=== PATIENT | female | born 1930 | race Caucasian/White ===

== ENCOUNTER 2016-10-26 19:58 | Inpatient (IN) | payer MEDICARE, OTHER ==
[~2016-10-26] VITALS: Ht 152.4 cm; Wt 72.2 kg
--- NOTE | 2016-10-26 19:56 | ED.REPORT ---
HPI-Stroke / CVA Oct 26, 2016 ED Provider: James Lizama MD Pt is an 86 year old female with a history of HTN, hyperlipidemia, TX, CHF, A- fib, and TIA who presents to the ED via EMS complaining of difficulty speaking onset prior to arrival. Per EMS, the pt was last known normal at 17:30 and she is asymptomatic aside from her slurred speech. EMS reports that the pt had no focal deficits and her vitals were normal en route. Pt currently lives alone , and she reportedly knew that she was having stroke symptoms. The pt had last spoke with the neighbor 2 hours ago at 17:30, and she last saw her daughter last night. When her daughter spoke to her on the phone, the pt was unable to speak. Per daughter, the pt takes aspirin, but she does not take Plavix currently. On pt's arrival, her blood pressure was 205/105. Daughter reports that the pt's last stroke was "years ago". She denies seizures , recent head trauma, recent lumbar puncture, GI bleeding, recent TX, and recent surgery. Pt reports vision change at onset of her symptoms. Nursing Notes Stated Complaint: STROKE LIKE SYMPTOMS Chief Complaint: Stroke Symptoms Nursing Notes Reviewed: Yes Allergies: Coded Allergies: No Known Allergies (Unverified , 10/26/16) Scheduled ([cholecalciferol]) 1 TABLET PO DAILY (Reported) Aspirin (Aspirin) 81 Mg Tablet 81 MG PO DAILY (Reported) Atorvastatin Calcium (Atorvastatin Calcium) 40 Mg Tablet 40 MG PO HS (Reported) Clopidogrel (Clopidogrel) 75 Mg Tablet 75 MG PO DAILY Furosemide (Furosemide) 20 Mg Tab 20 MG PO DAILY (Reported) Lactobacillus Combo No.11 (Probiotic) 1 Each Cap.sprink 1 EACH PO DAILY ( Reported) Losartan Potassium (Losartan Potassium) 100 Mg Tablet 100 MG PO DAILY (Reported ) Magnesium Oxide (Magnesium) 400 Mg Capsule 400 MG PO DAILY (Reported) Melatonin (Melatonin) 3 Mg Tab.rapdis 3 MG PO HS (Reported) Metoprolol Tartrate (Metoprolol Tartrate) 50 Mg Tablet 50 MG PO DAILY (Reported ) Multivit-Min/Iron Fum/Folic AC (Avtzb-Oglkopb-Gvlaenqf Tablet) 7.5 Mg Iron-400 Mcg Tablet 1 EACH PO DAILY (Reported) Omeprazole (Omeprazole) 20 Mg Capsule.dr 20 MG PO DAILY (Reported) Pnv Cmb#21/Iron/Folic Acid ( Complete Caplet) 1 Each Tablet 1 EACH PO DAILY (Reported) Potassium Chloride ER (Potassium Chloride ER) 10 Meq Tablet 10 MEQ PO DAILY ( Reported) TAKE WITH FOOD Scheduled PRN Acetaminophen/Codeine 300-30mg (Acetaminophen/Codeine 300-30mg) 1 Each Tablet 1 TABLET PO Q4H PRN PRN Pain (Reported) Gabapentin (Gabapentin) 300 Mg Capsule 300 MG PO DAILY PRN PRN Neuropathy ( Reported) Miscellaneous Medications Acetaminophen/Diphenhydramine (Tylenol Pm Ex-Strength Caplet) 500 Mg-25 Mg Tablet 1 EACH PO (Reported) General Time Seen by Provider: 20:05 Chief Complaint Unable to speak Hx Obtained From: Patient, Daughter, EMS Arrived By: Ambulance Time last known well 17:30 Sudden in Onset?: Yes Symptom Duration: Since onset Progression Since Onset: Gradually improving Severity: Current: No pain currently Severity: Maximum: No pain Recent Healthcare: No recent doctor visit, No recent hospitalization Similar Sx Previous: Yes Risk Factors NIH Stroke Scale Level of Consciousness: Alert and responsive (0) Ask Month & Age: Dysarthric/intubated (1) Open/Close Eyes/Hand Unmanned Equipment Operator: Performs both tasks (0) Horizontal EO Movements: None (0) Visual Dubois: No visual loss (0) Facial Palsy: Normal symmetry (0) Right Arm Motor Drift (10s): No drift 10 sec (0) Left Arm Motor Drift (10s): No drift 10 sec (0) Right Leg Motor Drift (5s): No drift 5 sec (0) Left Leg Motor Drift (5s): No drift 5 sec (0) Limb Ataxia FNF/Heel-Herrera: No ataxia (0) Sensation (Arms/Legs/Face): No sensory loss (0) Language Aphasia: Severe, fragmented (2) Dysarthria: Severe slur unintel (2) Extinction/Inattention: No exctinct/inattent (0) NIHSS Score: 5 Time NIHSS Performed: 20:11 Date NIHSS Performed: Oct 26, 2016 Past Medical History Past Medical History Reports: Congestive heart failure, Hyperlipidemia, Hypertension, Transient ischemic attack (right sided), Denies: Diabetes mellitus Reports: Atrial fibrillation Past Surgical History Reports: Carotid endarterectomy, Cataract surgery, Hysterectomy Smoking History Unknown if Ever Smoker Social History Alcohol Use: Denies alcohol use Drug Use: Denies drug use Other Social History: Good social support, Lives alone Ambulatory Status Independent Review of Systems Denies GI bleeding Denies head injury Neurologic: Reports: Slurred speech, Unable to speak, Vision change, Denies: Seizure Complete sys rev & neg: except as marked. Physical Exam Initial Vital Signs Vital Signs (First) Date Time Temp Pulse Resp B/P Pulse Ox O2 Delivery O2 Flow Rate FiO2 10/26/16 20:23 36.2 82 20 205/75 92 Room Air Initial VS: Reviewed Abdomen / GI: Soft, Non-tender Extremities: Vascular intact, Neuro intact Skin: Warm, Dry, No cyanosis General/Constitutional: Awake, Alert Head / Eyes: Atraumatic, Normocephalic Neck: Atraumatic, Supple, Full range of motion Respiratory / Chest: Atraumatic, Breath sounds NL, Breath sounds = bilat Cardiovascular: Heart rate NL, Heart sounds NL Heart Rate / Rhythm: Positive: Irreg irregular rhythm No lower extremity edema Neurologic: No motor deficits, No sensory deficits See NIH scale for details Interpretation & Diagnostics Lab Results Interpretation Result Diagram: 10/27/16 0550 10/27/16 0550 Test 10/26/16 20:19 10/26/16 20:21 10/26/16 21:25 Prothrombin Time 10.6sec (8.1-12.5) Prothromb Time International Ratio 0.99ratio Activated Partial Thromboplast Time 28.2sec (22.8-33.0) Hemoglobin A1c 5.8% (4.8-5.6) Troponin T < 0.010ug/L (0.0-0.011) Hold Ambriz Top Tube Received (Received) Urine Color Yellow (YELLOW) Urine Appearance Clear (CLEAR,HAZY) Urine pH 5.0 (5.0-8.0) Urine Specific [place] 1.020 (1.003-1.035) Urine Protein Negativemg/dL (NEG,TRACE) Urine Glucose (UA) Negativemg/dL (NEGATIVE) Urine Ketones Negativemg/dL (NEGATIVE) Urine Occult Blood Negative (NEGATIVE) Urine Nitrite Negative (NEGATIVE) Urine Bilirubin Negative (NEGATIVE) Urine Urobilinogen Normalmg/dL (NORMAL) Urine Leukocyte Esterase Small (NEGATIVE) Urine RBC 0-2/hpf (0-2) Urine WBC 6-10/hpf (0-5) Urine Epithelial Cells Few/hpf (NONE-MOD) Urine Crystals None seen (NONE SEEN) Urine Bacteria Few/hpf (NONE-FEW) Urine Hyaline Casts 08/13/lpf (NONE) Urine Granular Casts None seen (NONE SEEN) Urine Waxy Casts None seen (NONE SEEN) Urine Red Blood Cell Casts None seen (NONE SEEN) Urine White Blood Cell Casts None seen (NONE SEEN) Urine Mucus None seen (None Seen) Urine Trichomonas None seen (NONE SEEN) Urine Yeast None (NONE SEEN) Urinalysis Comment None Urine Culture Reflexed Indicated ECG Interpretation ECG Interpretation: Atrial fibrillation with a rate of 85 Probable left ventricular hypertrophy Inverted T waves in lead 3 No previous available for comparison. Time: 20:21 Interpreted by: ED physician CT Head Interpretation IMPRESSION: 1. No CT evidence of acute intracranial pathology. 2. Findings discussed via telephone ([phone]) with Dr. Lizama at 8:13 pm on 10/26/2016. Dictated by: Magnus Zamora M.D. on 10/26/2016 at 20:10 Study: Head CT no contrast Interpretation / Wet Read by: Interpret - Radiologist, Discussed w radiologist Re-Eval/Medical Decision Med Decision/Clinical Course 86-year-old female with a history of diabetes, hypertension, and hyperlipidemia with previous TIA and TX reported presents with word wesly. Her last known normal was 1730 when she spoke with a neighbor via telephone. She called her daughter at 1930 and was speaking unintelligibly. Her NIH stroke score here was evaluated at 5. Given that her blood pressure was initially 205/70, her age was greater than 81, and she had an old infarct seen on her head CT, the decision to use TPA was difficult. I consult with neurology at [facility] who recommended a jared discussion about the risks and benefits, stating that the risk of a bleed somewhere around 7% and his estimation and the benefit of using TPA might improve symptoms and one out of 8 or 9. I discussed this with the patient and her daughter who are present, at the 3 hour time point since the last known normal. In anticipation of potential TPA she was given labetalol 5 mg IV and blood pressure came down to 178/55. We elected not to treat with TPA as her symptoms seem to be improving slowly, but steadily. She began speaking intelligible words and started putting together sentences. Under consultation with neurology elected to give her Plavix. She was on this previously but it was stopped for an unknown reason. In order to restore blood pressure she was given 1 L of normal saline. She will be admitted locally for evaluation of acute CVA. Source of Hx: Old records Re-Evaluation/Progress #1: Time of Eval: 20:33 Patient Status: Condition improved Re-Evaluation/Progress Note: Pt rechecked. Informed pt and daughter of consult with neurologist and option to treat with TPA. Pt reports that she was initially had vision change, prompting her awareness of a potential stroke. Re-Evaluation/Progress #2: Time of Eval: 20:55 Re-Evaluation/Progress Note: Pt rechecked. Informed pt of consultation with Dr. Bhatti and recommendation to not try TPA at this point in time. Informed pt and daughter of plan for admission. Pt and daughter understand and agree with plan for admission. All questions addressed. Re-Evaluation/Progress #3: Time of Eval: 21:26 Re-Evaluation/Progress Note: Pt rechecked. Informed pt and daughter of plan for admission. Pt understands and agrees with plan for admission. All questions addressed. NIH Stroke Scale #1: Level of Consciousness: Alert and responsive (0) Ask Month & Age: Dysarthric/intubated (1) Open/Close Eyes/Hand Unmanned Equipment Operator: Performs both tasks (0) Horizontal EO Movements: None (0) Visual Dubois: No visual loss (0) Facial Palsy: Normal symmetry (0) Right Arm Motor Drift (10s): No drift 10 sec (0) Left Arm Motor Drift (10s): No drift 10 sec (0) Right Leg Motor Drift (5s): No drift 5 sec (0) Left Leg Motor Drift (5s): No drift 5 sec (0) Limb Ataxia FNF/Heel-Herrera: No ataxia (0) Sensation (Arms/Legs/Face): No sensory loss (0) Language Aphasia: Severe, fragmented (2) Dysarthria: Severe slur unintel (2) Extinction/Inattention: No exctinct/inattent (0) NIHSS Score: 5 Time NIHSS Performed: 20:11 Date NIHSS Performed: Oct 26, 2016 NIH Stroke Scale #2: Level of Consciousness: Alert and responsive (0) Ask Month & Age: 1 question right (1) (Knew age, but not year) Open/Close Eyes/Hand Unmanned Equipment Operator: Performs both tasks (0) Horizontal EO Movements: None (0) Visual Dubois: No visual loss (0) Facial Palsy: Normal symmetry (0) Right Arm Motor Drift (10s): No drift 10 sec (0) Left Arm Motor Drift (10s): No drift 10 sec (0) Right Leg Motor Drift (5s): No drift 5 sec (0) Left Leg Motor Drift (5s): No drift 5 sec (0) Limb Ataxia FNF/Heel-Herrera: No ataxia (0) Sensation (Arms/Legs/Face): No sensory loss (0) Language Aphasia: Severe, fragmented (2) Dysarthria: Severe slur unintel (2) Extinction/Inattention: No exctinct/inattent (0) NIHSS Score: 5 Time NIHSS Performed: 20:40 Date NIHSS Performed: Oct 26, 2016 Consultation #1: Call Returned at: 20:05 Note: Consult with radiologist. 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 Consultation #2: Consulted With: Neurology Call Returned at: 20:24 Hospital Manager: Agrees with eval, Agrees with plan Note: Consult with Dr. Bhatti. Discussed pt's case. Discussed risk and benefits of TPA. He states the risk of bleeding in the pt's brain is about 7% when treating with TPA. Consultation #3: Consulted With: Neurology Call Returned at: 20:52 Hospital Manager: Agrees with eval, Agrees with plan Note: Discussed pt's case. He concurs with plan to hold off on TPA treatment considering pt's gradual improvement. Consultation #4: Referral / Consult Name: Annamarie Blackburn DO Consulted With: Hospitalist Call Returned at: 21:17 Hospital Manager: Will see patient, Agrees with eval, Agrees with plan, Accepts admit Counseled Regarding: Diagnosis, Lab results, Need for admission Patient Discharge & Departure Impression: Primary Impression: Cerebrovascular accident CVA mechanism: unspecified Qualified Code: I63.9 - Cerebral infarction, unspecified Additional Impressions: Elevated blood pressure reading Atrial fibrillation Atrial fibrillation type: unspecified Qualified Code: I48.91 - Unspecified atrial fibrillation Hyperglycemia Disposition: ADMITTED TO HOSPITAL Discharge Condition All VS Reviewed: Yes Condition: Stable Referrals: Saad Rinaldi MD Crit Care Except Billable Proc Time Spent: 75-104 minutes Services Performed: Patient management by me, Time spent at bedside, Reviewing test results, Reviewing imaging, Discussing patient care, Documentation in record, Time with fam/surrogate Scribe Attestation Portions of this note were transcribed by Mi Lisa. I, Dr. Lizama personally performed the history, physical exam and medical decision-making; I reviewed and confirmed the accuracy of the information in the transcribed note. Signed by: Sachi Burr, 10/26/16. copies to: Saad Rinaldi MD, Gary R DO Oct 26, 2016 19:56 Mi Mercedes Oct 26, 2016 20:12 Left Arm Motor Drift (10s): No drift 10 sec (0) Right Leg Motor Drift (5s): No drift 5 sec (0) Left Leg Motor Drift (5s): No drift 5 sec (0) Limb Ataxia FNF/Heel-Herrera: No ataxia (0) Sensation (Arms/Legs/Face): No sensory loss (0) Language Aphasia: Severe, fragmented (2) Dysarthria: Severe slur unintel (2) Extinction/Inattention: No exctinct/inattent (0) NIHSS Score: 5 Time NIHSS Performed: 20:11 Date NIHSS Performed: Oct 26, 2016 NIH Stroke Scale #2: Level of Consciousness: Alert and responsive (0) Ask Month & Age: 1 question right (1) (Knew age, but not year) Open/Close Eyes/Hand Unmanned Equipment Operator: Performs both tasks (0) Horizontal EO Movements: None (0) Visual Dubois: No visual loss (0) Facial Palsy: Normal symmetry (0) Right Arm Motor Drift (10s): No drift 10 sec (0) Left Arm Motor Drift (10s): No drift 10 sec (0) Right Leg Motor Drift (5s): No drift 5 sec (0) Left Leg Motor Drift (5s): No drift 5 sec (0) Limb Ataxia FNF/Heel-Herrera: No ataxia (0) Sensation (Arms/Legs/Face): No sensory loss (0) Language Aphasia: Severe, fragmented (2) Dysarthria: Severe slur unintel (2) Extinction/Inattention: No exctinct/inattent (0) NIHSS Score: 5 Time NIHSS Performed: 20:40 Date NIHSS Performed: Oct 26, 2016 Consultation #1: Call Returned at: 20:05 Note: Consult with radiologist. 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 Consultation #2: Consulted With: Neurology Call Returned at: 20:24 Hospital Manager: Agrees with eval, Agrees with plan Note: Consult with Dr. Bhatti. Discussed pt's case. Discussed risk and benefits of TPA. He states the risk of bleeding in the pt's brain is about 7% when treating with TPA. Consultation #3: Consulted With: Neurology Call Returned at: 20:52 Hospital Manager: Agrees with eval, Agrees with plan Note: Discussed pt's case. He concurs with plan to hold off on TPA treatment considering pt's gradual improvement. Consultation #4: Referral / Consult Name: Annamarie Blackburn DO Consulted With: Hospitalist Call Returned at: 21:17 Hospital Manager: Will see patient, Agrees with eval, Agrees with plan, Accepts admit Counseled Regarding: Diagnosis, Lab results, Need for admission Patient Discharge & Departure Impression: Primary Impression: Cerebrovascular accident Disposition: ADMITTED TO HOSPITAL Discharge Condition All VS Reviewed: Yes Condition: Stable Referrals: Saad Rinaldi MD Crit Care Except Billable Proc Time Spent: 75-104 minutes Services Performed: Patient management by me, Time spent at bedside, Reviewing test results, Reviewing imaging, Discussing patient care, Documentation in record, Time with fam/surrogate Scribe Attestation Portions of this note were transcribed by Mi Lisa. I, Dr. Lizama personally performed the history, physical exam and medical decision-making; I reviewed and confirmed the accuracy of the information in the transcribed note. Signed by: Sachi Burr, 10/26/16. copies to: Saad Rinaldi MD, Gary R DO Oct 26, 2016 19:56 Mi Mercedes Oct 26, 2016 20:12
--- NOTE | 2016-10-26 20:16 | DRSVH ---
PROCEDURE: CT BRAIN TPA INDICATIONS: Stroke COMPARISON: None. FINDINGS: No acute hemorrhage, infarction, masses, midline shift or hydrocephalus. 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 Normal calvarium. Visualized sinuses and mastoid air cells are clear. IMPRESSION: 1. No CT evidence of acute intracranial pathology. 2. Findings discussed via telephone ([phone]) with Dr. Lizama at 8:13 pm on 10/26/2016. Dictated by: Magnus Zamora M.D. on 10/26/2016 at 20:10 Approved by: Magnus Zamora M.D. on 10/26/2016 at 20:14
[2016-10-26 20:23] VITALS: BP 205/75; PULSE 82; RESP 20; O2SAT 92
[2016-10-26 20:28] LABS: BASOPHILS % (AUTO) 0.8 % (0-3); EOSINOPHILS % (AUTO) 2.2 % (0-5); MONOCYTES % (AUTO) 19.2 % (4-12); Mean Corpuscular Hemoglobin 30.8 pg (27.0-35.0); NEUTROPHILS % (AUTO) 54.3 % (40-74); Platelet Count 283 bil/L (150-400)
[2016-10-26 20:45] LABS: INR 0.99 ratio
[2016-10-26] MEDS ORDERED: Labetalol 5 mg/mL 4 mL Inj IVPUSH ONE (20:45)
[2016-10-26 20:52] LABS: TROPONIN T < 0.010 ug/L (0.0-0.011)
[2016-10-26] MEDS ORDERED: 0.9% Sodium Chloride 1,000 ML IV ONE (21:22)
[2016-10-26] MEDS ORDERED: Alum-Mag Hydrox-Simeth 30 mL Suspension PO PRN (21:25)
[2016-10-26] MEDS ORDERED: Polyethylene Glycol (PEG) 17 Gm Powder PO PRN (21:25)
[2016-10-26] MEDS ORDERED: Ondansetron 2 mg/mL 2 mL Inj IVPUSH PRN (21:25)
[2016-10-26] MEDS ORDERED: Labetalol 5 mg/mL 4 mL Inj IVPUSH PRN (21:25)
[2016-10-26 21:44] LABS: APPEARANCE,URINE CLEAR (CLEAR,HAZY); COLOR,URINE YELLOW (YELLOW); OCCULT BLOOD,URINE NEGATIVE (NEGATIVE); UROBILINOGEN,URINE NORMAL (NORMAL)
[2016-10-26 22:35] VITALS: BP 187/69; PULSE 83; RESP 22; O2SAT 95
--- NOTE | 2016-10-26 22:58 | PCM.HPMED ---
Subjective Date of Service Oct 26, 2016 Primary Provider: Admitting Physician: Primary Care Physician: Saad Rinaldi MD Attending Physician: Chief Complaint: Dysarthria History of Present Illness: 86-year-old female with a history of hypertension, hyperlipidemia, reported TN, CHF, atrial fibrillation on no reported anticoagulation, and history of TIA and stroke 20 years ago presented to the emergency department via EMS due to dysarthria with last known normal around 1700 today. The patient is unable to relate details due to pain non-communicable, which is obviously frustrating to her. The daughter reports that the patient talked to the neighbors until approximate 1700 when she went home. The daughter called about 1900 and was unable to understand the patient had all. EMS was called and the patient was delivered to the emergency department. Per the EMS reports patient is in stable condition and known focal deficits were noted aside from the dysarthria. Patient's daughter denies any recent illnesses, trauma, seizures, or complaints of nausea/vomiting, abdomen, or chest pain. Patient denies racing heartbeat. Previous stroke was only evident in loss of visual capellan with no lasting deficits. In the emergency department the patient's dysarthria was described as severe no ability to verbally communicate. Patient was assessed for TPA, and a call was placed to [facility] neurology, with the decision being to withhold treatment due to age, blood pressure greater than 200, and a 1/8 chance of improving symptoms versus a 7% chance of hemorrhage. Patient was given 5 of labetalol in anticipation of TPA. Patient was then given a liter of normal saline, aspirin, and Plavix. Review of Systems: Complete review of systems performed; pertinent positives and negatives per history of present illness, all other systems reviewed and are negative Allergies Coded Allergies: No Known Allergies (Unverified , 10/26/16) Home Medications Visit for some the patient's been seen in our facility and currently only have reported medications of omeprazole and metoprolol. Patient is a patient of the [facility] and so far attempts to obtain records by the ED have reportedly been unanswered. PMH CHF HLP HTN TIA T2DM AF Surgical History Carotid Endarterectomy Cataract surgery Hysterectomy Family History No history of stroke Social History Hx Alcohol Use: No Hx Substance Use: No Smoking Status: Unknown if Ever Smoker Living Arrangement: with Family Alone Exam Vital Signs Vital Sign - Last Date Time Temp Pulse Resp B/P Pulse Ox O2 Delivery O2 Flow Rate FiO2 10/26/16 20:23 36.2 82 20 205/75 92 Room Air Exam General: Pleasant but frustrated age-appropriate female HEENT: PERRLA, EOMI, nonicteric, membranes moist Lymph: No lymphadenopathy Cardio: Irregular with no murmurs Respiratory: CTA bilaterally, no wheezes, no crackles Abdomen: Soft, positive bowel sounds, nontender, nondistended Extremities: No edema, 4/5 strength, sensation intact Psych: Appropriate mood and affect Skin: No rash Neurological NIH Alert and oriented CN II through XII intact sensation intact throughout mild right pronator drift inability to follow complex commands finger-nose could not be completed due to inability to understand commands [id number] is appropriate Babinski was negative bilaterally DTRs were mildly hyporeflexic speech was obviously disrupted, with the patient being able to repeat one 7 word sentences; she was not able to answer questions more than yes or no; on ED initial neurological exam she was unable to respond with yes/no NIH 2-3 Lab and Diagnostics Result Diagram: 10/26/16201810/26/162018 X-Rays, CTs and MRIs Brain CT IMPRESSION: 1. No CT evidence of acute intracranial pathology. 2. Findings discussed via telephone ([phone]) with Dr. Lizama at 8:13 pm on 10/26/2016. Dictated by: Magnus Zamora M.D. on 10/26/2016 at 20:10 12-lead ECG Atrial fibrillation with rate in the 80s Assessment & Plan 86-year-old female with a history of hypertension, hyperlipidemia, reported TN, CHF, atrial fibrillation on no reported anticoagulation, and history of TIA and stroke 20 years ago presented to the emergency department via EMS due to dysarthria with last known normal around 1700 today Acute Stroke; present admission; ongoing -Presents with aphasia/dysarthria; TPA. 2 higher risk for 2 little benefit -Patient was previously on Plavix building -CT brain was negative for bleed -MRI stroke protocol with CT angio brain and neck tomorrow -Atorvastatin 10 mg daily -Aspirin 325 mg daily -Lipid panel and A1c -Permissive hypertension; control>220 with labetalol -Swallow screen -OT/PT ordered CHF; present on admission; stable -Reported CHF but no available records -Pt reports taking metoprolol but no records available -No metoprolol dose; will start 25mg BID until records available Atrial fibrillaiton reportedly not on anticoagulation; present on admission; stable -Reportedly on metoprolol and rate controlled on admit -Records requested Hx of TN and TIA -Daily Aspirin -Was previously on plavix but unable to establish timeline for when this was stopped -Records requested Hypertension -permissive hypertension -only reported medication is metoprolol -Records requested Type II diabetes; present on admission; ongoing -Last A1c was is unavailable; A1c ordered -Home medication: None -Records requested -Blood glucose should be closely monitored not to exceed 180; if greater than 180 please contact M.DJennifer Hyperlipidemia -statin as above Disposition: Patient is being admitted to inpatient status with expected length of stay greater than two midnights due to to severity of presentation, duration of treatment, and risks of adverse events disposition Full code Pain Evaluation: Adequate Pain Control VTE Prophylaxis Indicated: Contraindicated Resuscitation Status: CPR: Attempt Resuscitation Attending Statement The patient was seen and examined together with house staff on 10/26/2016 and I have added additional information to the note above. Metoprolol held on admit to allow for permissive hypertension. Atorvastatin dose increased to 40mg qHS. Madi Schroeder DO Oct 26, 2016 21:36 Annamarie Blackburn DO Oct 27, 2016 02:41
[2016-10-26 23:22] VITALS: PULSE 78
[2016-10-27] VITALS (7 sets, daily range): BP systolic 134–188; BP diastolic 62–73; PULSE 68–87; RESP 20–22; O2SAT 93–95
--- NOTE | 2016-10-27 02:04 | NUR ---
ADMIT NOTE Pt arrived to [facility] Room 3018 approx 2230. Pt ambulated from stretcher to bed, steady on feet. VS obtained. Pt placed on remote telemetry. Pt continues to have word salad/fluent aphasia. Pts daughter assisted w/ admission questions. Pt gets frustrated. Pt does follow instructions, is able to answer 'yes' and 'no' questions. Pt passed swallow screen in ER, on pureed, honey-thick diet. Pt given metoprolol in applesauce. Pt given picture card and white board to assist w/ communication. Pt has not been able to write as a means of communication. Pt denies pain. No facial droop or weakness is either side or extremity. Continue to monitor. Med rec has not been completed. Pt unable to communicate home medications. Pt daughter also unable to give adequate information on pts home medications. Call light in reach. Bed alarm on. Intentional rounding.
--- NOTE | 2016-10-27 04:52 | NUR ---
NEURO Pt continues to have word salad. Pt oriented, follows instructions. Pt frustrated, has been tearful. Pt has used call light for assistance. Pt has been able to point to objects to communicate her needs as she is unable to find the appropriate words. Pt has been up to BR a few times. No change in extremity strength, no facial droop. Continue to monitor. Call light in reach. Bed alarm on. Intentional rounding. Addendum: 10/27/16 at 0551 by BECKIE VIRGEN RN At end of shift, pt was able to start writing on paper. Pt still has difficulty expressing what she means on paper, but now she is able to write words, compared to the start of shift, pt only scribbled.
[2016-10-27 06:46] LABS: BASOPHILS % (AUTO) 0.8 % (0-3); EOSINOPHILS % (AUTO) 1.2 % (0-5); MONOCYTES % (AUTO) 18.2 % (4-12); Mean Corpuscular Hemoglobin 30.9 pg (27.0-35.0); Mean Corpuscular Volume 93.7 fL (81-100); NEUTROPHILS % (AUTO) 61.2 % (40-74); Platelet Count 272 bil/L (150-400)
--- NOTE | 2016-10-27 09:49 | DRSVH ---
PROCEDURE: CT ANGIO HEAD AND NECK (P) INDICATIONS: stroke TECHNIQUE: Pre-contrast 4.5 mm thick sections acquired from the foramen magnum to the vertex. After the adminis tration of intravenous contrast, 1 mm thick sections acquired from the aortic arch through the [place]. Post-contrast 4.5 mm thick sections then re-acquired from the foramen magnum to the vert ex. 3-dimensional kpxxoxz-tgheedpvk-yicldhokdc (MIP) and/or volume rendering reformats were acquired of the central intracranial vasculature and neck separately. For radiation dose reduction, the foll owing was used: automated exposure control, adjustment of mA and/or kV according to patient size. COMPARISON: [facility], CT, CT BRAIN TPA, 10/26/2016, 20:02. FINDINGS: Image quality: Excellent. BRAIN: CSF spaces: Ventricles are normal in size and shape. Basal cisterns are patent. No extra-axial flu id collections. Brain: No midline shift. No intracranial bleeds or masses. Encephalomalacia is present within the r ight occipital lobe consistent with old infarct. There are scattered deep and periventricular white m atter changes likely associated with microvascular ischemia. There is decreased giron-white differenti ation within the left frontal lobe (series 5, image 18). This is a new finding when compared with the prior CT dated 10/26/16. Giron-white matter interface appears otherwise intact. Skull and face: Calvarium and facial bones appear intact, without suspicious lesions. Orbits appear normal. Sinuses: Sinuses and mastoids are clear. HEAD CT ANGIOGRAPHY: Anterior circulation: Multifocal high-grade stenoses are present within the cavernous portion of the bilateral internal carotid artery secondary to dense atheromatous calcifications. A moderate grade st enosis is present within the right M2 segment of the MCA. The flow within the paired anterior cerebra l arteries is normal and symmetric. The anterior communicating artery is seen. No aneurysms are see n. Posterior circulation: The left vertebral artery demonstrates normal course and caliber. The right ve rtebral artery is diminutive at the skull base and does not join the left artery to form the basilar artery. The basilar artery, formed exclusively from the left vertebral artery demonstrates normal cou rse and caliber. Flow within the posterior cerebral arteries is normal and symmetric. No aneurysms a re seen. NECK CT ANGIOGRAPHY: Carotid system: The great vessels demonstrate a conventional anatomy as they arise from the aortic a rch. Dense atheromatous calcifications are present at the aortic arch. The origins of the common car otid arteries appear patent the right common carotid artery demonstrates normal course and caliber. T he patient is status post right carotid endarterectomy. Mild atheromatous calcifications are present at the carotid bulb with mild narrowing. A mild grade stenosis is present within the mid left common carotid artery secondary to atheromatous calcification. Patient is likely status post left carotid en darterectomy. The cervical portions of the internal carotid arteries demonstrate normal calibers and courses. Posterior circulation: There is a high-grade stenosis at the origin of the left vertebral artery. The right vertebral artery is patent likely at the origin. The more superior extracranial portions of charlie th vertebral arteries also demonstrate normal courses and calibers. They join to form a normal appea ring basilar artery. Soft tissues: There is moderate centrilobular emphysema at the apices. There are small bilateral low density pleural effusions. There is a large low density septated nodule within the left thyroid lobe. The right thyroid lobe is unremarkable. Bones: No suspicious bony lesions. Visualized cervical spine appears normally aligned. IMPRESSION: 1. New subacute infarct within the left frontal lobe likely within the watershed distribution between the left anterior and middle cerebral arteries. No findings suggest hemorrhagic transformation. This finding was discussed with Dr. Navas at 9:30 AM on 10/27/16. 2. Old right occipital lobe infarct and findings likely associated with chronic microvascular ischemi c changes. 3. Multifocal high-grade stenoses within the cavernous portions of the bilateral internal carotid art eries secondary to extensive atheromatous calcifications. 4. Moderate grade stenosis within the M2 segment of the right middle cerebral artery. 5. Basilar artery formed exclusively from a normal appearing left vertebral artery. 6. Focal, high-grade stenosis at the origin of the left vertebral artery. 7. Centrilobular emphysema bilateral low density pleural effusions which are incompletely characteriz ed on this limited view of the chest. 8. Large septated low density nodule within the left thyroid lobe. Nonemergent thyroid ultrasound wou ld be helpful to further characterize this finding. Dictated by: Daysi Worthington M.D. on 10/27/2016 at 8:56 Approved by: Daysi Worthington M.D. on 10/27/2016 at 9:46
--- NOTE | 2016-10-27 11:32 | NUR ---
Evaluation completed. Please go to "Notes" then click on "Assessments and Notes" (bottom left corner of screen). Then select appropriate discipline tab on top of screen.
[2016-10-27] MEDS ORDERED: MAGN400C PO (13:08)
[2016-10-27] MEDS ORDERED: OMEP20CA11 PO (13:08)
[2016-10-27] MEDS ORDERED: POTA10TA12 PO (13:08)
[2016-10-27] MEDS ORDERED: ATOR40TA69 PO (13:08)
[2016-10-27] MEDS ORDERED: ACET1TAB42 PO (13:08)
[2016-10-27] MEDS ORDERED: LACT1CAP73 PO (13:08)
[2016-10-27] MEDS ORDERED: METO50TA3 PO (13:08)
[2016-10-27] MEDS ORDERED: ACET-2605 PO (13:08)
[2016-10-27] MEDS ORDERED: MULT-1086 PO (13:08)
[2016-10-27] MEDS ORDERED: FUR20 PO (13:08)
[2016-10-27] MEDS ORDERED: LOSA100T29 PO (13:08)
[2016-10-27] MEDS ORDERED: GABA-502 PO (13:08)
[2016-10-27] MEDS ORDERED: MELA3TAB46 PO (13:16)
[2016-10-27] MEDS ORDERED: cholecalciferol PO (13:16)
[2016-10-27] MEDS ORDERED: PNV1TABL9 PO (13:16)
[2016-10-27] MEDS ORDERED: ASPI-973 PO (13:16)
--- NOTE | 2016-10-27 13:19 | NUR ---
Evaluation completed. Please go to "Notes" then click on "Assessments and Notes" (bottom left corner of screen). Then select appropriate discipline tab on top of screen.
[2016-10-27] MEDS ORDERED: FOLIC ACID PO SCH (13:25)
[2016-10-27] MEDS ORDERED: Codeine-APAP 30-300 mg Tablet PO PRN (13:25)
[2016-10-27] MEDS ORDERED: PNV CMB PO SCH (13:25)
[2016-10-27] MEDS ORDERED: IRON PO SCH (13:25)
[2016-10-27] MEDS ORDERED: [UNRECOGNIZED DRUG - OTHER] PO SCH (13:25)
--- NOTE | 2016-10-27 13:33 | PCM.PNMED ---
Subjective Date of Service Oct 27, 2016 Subjective Patient sitting in a chair at bedside today. She does have improvement in her speech however continues to have an expressive aphasia. She just finished working with physical therapy and physical therapist reports intact motor strength. Exam Vital Signs Vital Sign - Last Date Time Temp Pulse Resp B/P Pulse Ox O2 Delivery O2 Flow Rate FiO2 10/27/16 08:36 36.5 68 21 156/62 93 Room Air 10/27/16 04:18 1.00 Intake and Output 10/26/16 10/26/16 10/27/16 Cumulative From/Thru 15:00 23:00 07:00 10/26/16 20:23 - 10/27/16 06:13 Intake Total 1000 ml 0 ml 1000 ml Output Total 1125 ml 1125 ml Balance 1000 ml -1125 ml -125 ml Intake Oral 0 ml 0 ml IV Total 1000 ml 1000 ml Output Urine Total 1125 ml 1125 ml Exam Constitutional: Elderly female in no acute distress Head: Normocephalic atraumatic Chest: Clear to auscultation Cor: Irregular irregular rate and rhythm S1-S2 Abdomen: Soft nontender bowel sounds present Extremities: No pedal edema Psych: Mood and affect are appropriate Skin: No rashes Neuro: Alert and oriented 3, motor strength is intact bilaterally she does have an intermittent expressive aphasia present IVs and Medications Medications Reviewed: Medications were reviewed in detail Lab and Diagnostics Laboratory Tests 72 Hours Test 10/26/16 20:19 10/26/16 20:21 10/26/16 21:25 10/27/16 05:50 White Blood Count 8.7th/mm3 (3.8-10.1) 9.1th/mm3 (3.8-10.1) Red Blood Count 4.15mil/mm3 (3.90-5.20) 3.95mil/mm3 (3.90-5.20) Hemoglobin 12.8g/dL (12.0-15.6) 12.2g/dL (12.0-15.6) Hematocrit 38.6% (35.0-46.0) 37.0% (35.0-46.0) Mean Corpuscular Volume 93.0fL (81-100) 93.7fL (81-100) Mean Corpuscular Hemoglobin 30.8pg (27.0-35.0) 30.9pg (27.0-35.0) Mean Corpuscular Hemoglobin Concent 33.2% (32.0-37.0) 33.0% (32.0-37.0) Red Cell Distribution Width 16.8% (12.3-15.4) 16.7% (12.3-15.4) Platelet Count 283bil/L (150-400) 272bil/L (150-400) Neutrophils (%) (Auto) 54.3% (40-74) 61.2% (40-74) Lymphocytes (%) (Auto) 23.2% (14-46) 18.3% (14-46) Monocytes (%) (Auto) 19.2% (4-12) 18.2% (4-12) Eosinophils (%) (Auto) 2.2% (0-5) 1.2% (0-5) Basophils (%) (Auto) 0.8% (0-3) 0.8% (0-3) Prothrombin Time 10.6sec (8.1-12.5) Prothromb Time International Ratio 0.99ratio Activated Partial Thromboplast Time 28.2sec (22.8-33.0) Sodium Level 132mEq/L (134-144) 137mEq/L (134-144) Potassium Level 4.1mEq/L (3.5-5.2) 4.4mEq/L (3.5-5.2) Chloride Level 92mEq/L (97-108) 99mEq/L (97-108) Carbon Dioxide Level 22mmol/L (18-29) 23mmol/L (18-29) Blood Urea Nitrogen 16mg/dL (8-27) 14mg/dL (8-27) Creatinine 0.85mg/dL (0.57-1.00) 0.64mg/dL (0.57-1.00) Estimat Glomerular Filtration Rate 91mL/min (>59) 126mL/min (>59) Glucose Level 121mg/dL (60-99) 116mg/dL (60-99) Calcium Level 9.6mg/dL (8.5-10.1) 9.3mg/dL (8.5-10.1) Total Bilirubin 0.6mg/dL (0.0-1.2) 0.7mg/dL (0.0-1.2) Aspartate Amino Transf (AST/SGOT) 30U/L (0-50) 23U/L (0-50) Alanine Aminotransferase (ALT/SGPT) 23U/L (0-32) 18U/L (0-32) Alkaline Phosphatase 94U/L (25-165) 87U/L (25-165) Troponin T < 0.010ug/L (0.0-0.011) Total Protein 7.0g/dL (6.4-8.4) 6.3g/dL (6.4-8.4) Albumin 4.1g/dL (3.4-5.0) 4.1g/dL (3.4-5.0) Hold Ambriz Top Tube Received (Received) Urine Color Yellow (YELLOW) Urine Appearance Clear (CLEAR,HAZY) Urine pH 5.0 (5.0-8.0) Urine Specific [place] 1.020 (1.003-1.035) Urine Protein Negativemg/dL (NEG,TRACE) Urine Glucose (UA) Negativemg/dL (NEGATIVE) Urine Ketones Negativemg/dL (NEGATIVE) Urine Occult Blood Negative (NEGATIVE) Urine Nitrite Negative (NEGATIVE) Urine Bilirubin Negative (NEGATIVE) Urine Urobilinogen Normalmg/dL (NORMAL) Urine Leukocyte Esterase Small (NEGATIVE) Urine RBC 0-2/hpf (0-2) Urine WBC 6-10/hpf (0-5) Urine Epithelial Cells Few/hpf (NONE-MOD) Urine Crystals None seen (NONE SEEN) Urine Bacteria Few/hpf (NONE-FEW) Urine Hyaline Casts 5/20/lpf (NONE) Urine Granular Casts None seen (NONE SEEN) Urine Waxy Casts None seen (NONE SEEN) Urine Red Blood Cell Casts None seen (NONE SEEN) Urine White Blood Cell Casts None seen (NONE SEEN) Urine Mucus None seen (None Seen) Urine Trichomonas None seen (NONE SEEN) Urine Yeast None (NONE SEEN) Urinalysis Comment None Urine Culture Reflexed Indicated Triglycerides Level 81mg/dL (0-149) Cholesterol Level 173mg/dL (100-199) LDL Cholesterol, Calculated 71.800mg/dL (0-99) VLDL Cholesterol 16.200mg/dL HDL Cholesterol 85mg/dL (>39) Cholesterol/HDL Ratio 2.04 (0.0-4.4) Result Diagram: 10/27/16 0550 10/27/16 0550 X-Rays, CTs and MRIs Brain CT IMPRESSION: 1. No CT evidence of acute intracranial pathology. 2. Findings discussed via telephone ([phone]) with Dr. Lizama at 8:13 pm on 10/26/2016. Dictated by: Magnus Zamora M.D. on 10/26/2016 at 20:[address] ANGIOGRAPHY: Anterior circulation: Multifocal high-grade stenoses are present within the cavernous portion of the bilateral internal carotid artery secondary to dense atheromatous calcifications. A moderate grade stenosis is present within the right M2 segment of the MCA. The flow within the paired anterior cerebral arteries is normal and symmetric. The anterior communicating artery is seen. No aneurysms are seen. Posterior circulation: The left vertebral artery demonstrates normal course and caliber. The right vertebral artery is diminutive at the skull base and does not join the left artery to form the basilar artery. The basilar artery, formed exclusively from the left vertebral artery demonstrates normal course and caliber. Flow within the posterior cerebral arteries is normal and symmetric. No aneurysms are seen. NECK CT ANGIOGRAPHY: Carotid system: The great vessels demonstrate a conventional anatomy as they arise from the aortic arch. Dense atheromatous calcifications are present at the aortic arch. The origins of the common carotid arteries appear patent the right common carotid artery demonstrates normal course and caliber. The patient is status post right carotid endarterectomy. Mild atheromatous calcifications are present at the carotid bulb with mild narrowing. A mild grade stenosis is present within the mid left common carotid artery secondary to atheromatous calcification. Patient is likely status post left carotid endarterectomy. The cervical portions of the internal carotid arteries demonstrate normal calibers and courses. Posterior circulation: There is a high-grade stenosis at the origin of the left vertebral artery. The right vertebral artery is patent likely at the origin. The more superior extracranial portions of both vertebral arteries also demonstrate normal courses and calibers. They join to form a normal appearing basilar artery. Soft tissues: There is moderate centrilobular emphysema at the apices. There are small bilateral low density pleural effusions. There is a large low density septated nodule within the left thyroid lobe. The right thyroid lobe is unremarkable. Bones: No suspicious bony lesions. Visualized cervical spine appears normally aligned. IMPRESSION: 1. New subacute infarct within the left frontal lobe likely within the watershed distribution between the left anterior and middle cerebral arteries. No findings suggest hemorrhagic transformation. This finding was discussed with Dr. Navas at 9:30 AM on 10/27/16. 2. Old right occipital lobe infarct and findings likely associated with chronic microvascular ischemic changes. 3. Multifocal high-grade stenoses within the cavernous portions of the bilateral internal carotid arteries secondary to extensive atheromatous calcifications. 4. Moderate grade stenosis within the M2 segment of the right middle cerebral artery. 5. Basilar artery formed exclusively from a normal appearing left vertebral artery. 6. Focal, high-grade stenosis at the origin of the left vertebral artery. 7. Centrilobular emphysema bilateral low density pleural effusions which are incompletely characterized on this limited view of the chest. 8. Large septated low density nodule within the left thyroid lobe. Nonemergent thyroid ultrasound would be helpful to further characterize this finding. Dictated by: Daysi Worthington M.D. on 10/27/2016 at 8:56 Approved by: Daysi Worthington M.D. on 10/27/2016 at 9:46 12-lead ECG Atrial fibrillation with rate in the 80s Assessment & Plan 86-year-old female with a history of hypertension, hyperlipidemia, reported IL, CHF, atrial fibrillation on no reported anticoagulation, and history of TIA and stroke 20 years ago presented to the emergency department via EMS due to dysarthria with last known normal around 1700 today Acute Stroke; present admission; ongoing -Presents with aphasia/dysarthria; TPA. 2 higher risk for 2 little benefit -Patient was previously on Plavix building -CT brain was negative for bleed - CT angio brain and neck reveals left frontal stroke most likely not watershed distribution of the anterior and middle cerebral arteries. Radiology suggested that there would be no additional information from obtaining MRI/MRA and hence this was canceled. -Increased Atorvastatin to 80 mg by mouth daily -Aspirin 325 mg daily and Plavix -Lipid panel and A1c -Permissive hypertension; control>220 with labetalol -Swallow screen -OT/PT ordered also speech therapy consultation for expressive aphasia -Most likely will also need anticoagulant therapy within the next 2 weeks given her A. fib and acute CVA. We will not give currently is there is increased risk of hemorrhagic transformation. -Check echocardiogram Left thyroid complex nodule seen on CAT scan -We will need nonemergent follow-up of this as an outpatient CHF; present on admission; stable -Reported CHF but no available records -Pt reports taking metoprolol but no records available -No metoprolol dose; will start 25mg BID until records available Atrial fibrillaiton reportedly not on anticoagulation; present on admission; stable -Reportedly on metoprolol and rate controlled on admit -Records requested Hx of IL and TIA -Daily Aspirin -Was previously on plavix but unable to establish timeline for when this was stopped -Records requested Hypertension -permissive hypertension -only reported medication is metoprolol -Records requested Type II diabetes; present on admission; ongoing -Last A1c was is unavailable; A1c ordered -Home medication: None -Records requested -Blood glucose should be closely monitored not to exceed 180; if greater than 180 please contact Katja.Ochoa Hyperlipidemia -statin as above Disposition: Patient is being admitted to inpatient status with expected length of stay greater than two midnights due to to severity of presentation, duration of treatment, and risks of adverse events disposition Full code Resuscitation Status: CPR: Attempt Resuscitation Time spent 30 minutes Lyndsey Lugo MD Oct 27, 2016 13:33
--- NOTE | 2016-10-27 15:59 | DRSVH ---
[facility] [address] [place] [address] Echocardiogram Report Name: ERNESTO WHITEHEAD PStudy Date: 05/2016 Height: 60 in Hospital Exam Location: [facility] Weight: 166 lb Gender: Female BSA: 1.7 m2 : 1930 Age: 86 yrs BP: 156/62 mmHg Reason For Study: CVA Ordering Physician: Performed By: Kaley Ramirez Interpretation Summary The patient was in atrial fibrillation with controlled ventricular rate during the exam. The left ventricle is normal in size. The ejection fraction is estimated to be 50-55%. Ther appears to be moderate to severe hypokinesis of base to mid inferior wall and base to mid inferoseptum. The right ventricle is mildly dilated. Right ventricular systolic function is mildly reduced. The left atrium is severely dilated. Injection of contrast documented no interatrial shunt. There is moderate tricuspid regurgitation. The right ventricular systolic pressure is estimated at 51 mmHg assuming a right atrial pressure of 3 mm Hg. There is moderate to severe mitral regurgitation. Procedure: A two-dimensional transthoracic echocardiogram with color flow and Doppler was performed. The study quality was technically good. There is no prior echocardiogram noted for this patient. The heart rate ranged between 76-88 bpm during the study. The patient was in atrial fibrillation with controlled ventricular rate during the exam. Left Ventricle: The left ventricle is normal in size. There is normal left ventricular wall thickness. There is no thrombus. The ejection fraction is estimated to be 50-55%. Ther appears to be moderate to severe hypokinesis of base to mid inferior wall and base to mid inferoseptum. Diastolic function could not be accurately assessed due to atrial fibrillation. Right Ventricle: The right ventricle is mildly dilated. A calcified moderator band is seen in the right ventricle. Right ventricular systolic function is mildly reduced. Atria: The left atrium is severely dilated. The right atrium is mildly dilated. Injection of contrast documented no interatrial shunt. Mitral Valve: The mitral valve leaflets appear mildly thickened, but open well. The mitral valve leaflets are mildly calcified. The mitral valve chordae are thickened and/or calcified. There is mild mitral annular calcification. There is moderate to severe mitral regurgitation. Aortic Valve: The aortic valve is trileaflet. There is mild aortic valve sclerosis. Leaflet mobility is mildly reduced. There is no hemodynamically significant valvular aortic stenosis. There is trace aortic regurgitation. Tricuspid Valve: The tricuspid valve leaflets are thickened and/or calcified, but open well. There is moderate tricuspid regurgitation. The right ventricular systolic pressure is estimated at 51 mmHg assuming a right atrial pressure of 3 mm Hg. Pulmonic Valve: The pulmonic valve is normal in structure and function. There is mild pulmonic regurgitation. Great Vessels: The aortic root is normal size. The ascending aorta could not be visualized. The IVC is of normal diameter and collapses greater than 50% with a sniff. This suggests a low right atrial pressure of 3 mm Hg. Pericardium/ Pleura There is no pericardial effusion. There is no pleural effusion. MMode/2D Measurements & Calculations LVIDd: 5.0 cm LA dimension: 5.1 cm RA long axis Ao root diam LVIDs: 3.5 cm FS: 29.6 % LA A2 area: 30.4 cm RA area Aortic Jxn: 3.0 cm IVSd: 0.98 cm LA A4 area: 37.8 cm Ao Arch Diam (Prox LVPWd: 0.99 cm LA length (vol) : 21.1 cm Trans): 2.3 cm RA vol LA vol: 144.2 ml : 64.9 ml LA vol index RA : 37.6 mm/ RVDd major IVC diam: 1.9 cm : 6.0 cm LV roberts. diameter/BSA LV sys. diameter/BSA RVD1 (basal) RVD2 (mid): 3.7 cm (cm/m^2): 2.9 (cm/m^2): 2.0 Doppler Measurements & Calculations Ao V2 max MR ERO: 0.37 cm2 TR max allyson Ao V2 mean : 109.3 cm/sec : 345.2 cm/sec : 72.1 cm/sec Ao max P.8 mmHg TR max PG Ao V2 VTI: 21.5 cm Ao mean P.4 mmHg : 47.7 mmHg PA V2 max : 71.5 cm/sec PA mean PG : 0.94 mmHg PA Accel Time MR flow rate PA V2 mean : 247.2 cm3/sec : 43.1 cm/sec MR PISA radius Reading Physician:HERB
[2016-10-27] MEDS: Multivit-Miner-Folic Acid-Iron Tablet PO SCH (16:01)
[2016-10-27] MEDS: Pantoprazole 20 mg ER24 Tablet PO SCH (16:02)
--- NOTE | 2016-10-27 17:26 | NUR ---
Social Work-initial assessment: Data:See initial assessment. Pt is a 86 y/o female who was admitted on 10/26/16 for CVA per H&P. pt's insurance is [email or web address] and PCP is Saad Rinaldi MD. EMR Reviewed. LIZZETTE met with pt and daughter Kaley at bedside, SW role explained. Pt is alert and oriented x3. Pt resides at home alone where she remains independent with ADLS. pt drives and uses either a fww or cane. Pt has history with HH through [facility] and has history with [facility] in rehab. Pt has no hub cutter care insurance or VA benefits. SW discussed DPOA /advanced directive, paperwork provided. PT has seen pt and cleared pt for home. ST recommending SNF vs home with HH vs outpt services. SW to await MD orders. SW provided pt and daughter with discharge planning checklist and encouraged them to call with any questions, phone number provided. Pt's daughter to provide transport. SW will continue to follow. Assessment:Pt who is independent at baseline. Plan:Pt to likely discharge home when medically stable. SW to await MD orders. SW will continue to follow. PAULA Brown Addendum: 10/27/16 at 1731 by LIZZIE MOURA Amended: Links added.
--- NOTE | 2016-10-27 19:23 | NUR ---
Expressive Aphasia: patient has had very prominent expressive aphasia today. She has not had swallowing issues. Sheis able to write what she wants to say and then read what she wrote without problems. Patient stated that the lack of ability to verbalize "comes and goes". Patient has shown significant improvement with her speech throughout the day . Frequent rounding in place time and care to listen attentively continue to be a priority with patient care. Stroke protocol continues.
--- NOTE | 2016-10-28 02:41 | NUR ---
activity Pt alert and oriented x 3, speaks clearly but spends time word finding in conversation. Will write out what she wishes to say and then reads it. No complaints of pain or discomfort. Had leg cramp this evening, stretched out legs and toes to alleviate return of cramp. Pt will use call light and is able to make her needs known.
[2016-10-28 04:50] VITALS: PULSE 63
[2016-10-28 05:49] VITALS: BP 149/74; PULSE 90; RESP 20; O2SAT 94
[2016-10-28 08:00] VITALS: PULSE 71
[2016-10-28 08:01] VITALS: BP 143/63; PULSE 72; RESP 18; O2SAT 94
[2016-10-28] MEDS: Pantoprazole 20 mg ER24 Tablet PO SCH (08:25)
[2016-10-28] MEDS: Multivit-Miner-Folic Acid-Iron Tablet PO SCH (08:26)
--- NOTE | 2016-10-28 11:17 | PCM.DIMED ---
Discharge Instructions Date of Service Oct 28, 2016 Dates of Hospitalization Oct 26, 2016 at 21:36 Discharge Diagnosis Discharge Diagnosis acute left frontal watershed LUCIA,MCA stroke with expressive aphasia,Atrial fibrillation ?new Diet Discharge Diet: Heart Healthy Activity Discharge Activity: Other (as tolerated) Call your provider Call your provider for: Fever or Chills, Shortness of breath, Bleeding, Chest pain, Vomitting, Excessive diarrhea, Weakness (unilateral) Patient Instructions Follow-up Provider: Saad Rinaldi MD Follow-up with PCP in: Other (5-7 days,sooner if problems) Lyndsey Lugo MD Oct 28, 2016 11:17
[2016-10-28] MEDS ORDERED: CLOP75TA28 PO (11:19)
--- NOTE | 2016-10-28 14:28 | NUR ---
Screened. No OT need. Barry Hernandez, OT/L
--- NOTE | 2016-10-28 14:30 | NUR ---
Discharge Nursing Note: Patient was discharged to home at 1430. Patients IV was removed intact. Her Telemetry was removed intact. All of patients discharge information was reviewed with her and her questions were answered to her satisfaction. Patient was set up with home speech therapy by rattan worker. Patient was brought to the hospital lobby in a wheelchair by nursing staff member and she was driven to home by her daughter.
--- NOTE | 2016-10-28 14:40 | PCM.DC.MED ---
Discharge Summary Date of Service Oct 28, 2016 Dates of Hospitalization Date of Hospital Admission Oct 26, 2016 at 21:36 Date of Discharge: Oct 28, 2016 Providers: Admitting Physician: Annamarie Blackburn DO Primary Care Physician: Saad Rinaldi MD Attending Physician: Lyndsey Lugo MD Diagnosis at Time of Discharge Diagnosis at Time of Discharge acute left frontal watershed LUCIA,MCA stroke with expressive aphasia,Atrial fibrillation ?new Consultations Physical therapy, speech therapy Procedures XRay, CTs & MRIs Brain CT IMPRESSION: 1. No CT evidence of acute intracranial pathology. 2. Findings discussed via telephone ([phone]) with Dr. Lizama at 8:13 pm on 10/26/2016. Dictated by: Magnus Zamora M.D. on 10/26/2016 at 20:[address] ANGIOGRAPHY: Anterior circulation: Multifocal high-grade stenoses are present within the cavernous portion of the bilateral internal carotid artery secondary to dense atheromatous calcifications. A moderate grade stenosis is present within the right M2 segment of the MCA. The flow within the paired anterior cerebral arteries is normal and symmetric. The anterior communicating artery is seen. No aneurysms are seen. Posterior circulation: The left vertebral artery demonstrates normal course and caliber. The right vertebral artery is diminutive at the skull base and does not join the left artery to form the basilar artery. The basilar artery, formed exclusively from the left vertebral artery demonstrates normal course and caliber. Flow within the posterior cerebral arteries is normal and symmetric. No aneurysms are seen. NECK CT ANGIOGRAPHY: Carotid system: The great vessels demonstrate a conventional anatomy as they arise from the aortic arch. Dense atheromatous calcifications are present at the aortic arch. The origins of the common carotid arteries appear patent the right common carotid artery demonstrates normal course and caliber. The patient is status post right carotid endarterectomy. Mild atheromatous calcifications are present at the carotid bulb with mild narrowing. A mild grade stenosis is present within the mid left common carotid artery secondary to atheromatous calcification. Patient is likely status post left carotid endarterectomy. The cervical portions of the internal carotid arteries demonstrate normal calibers and courses. Posterior circulation: There is a high-grade stenosis at the origin of the left vertebral artery. The right vertebral artery is patent likely at the origin. The more superior extracranial portions of both vertebral arteries also demonstrate normal courses and calibers. They join to form a normal appearing basilar artery. Soft tissues: There is moderate centrilobular emphysema at the apices. There are small bilateral low density pleural effusions. There is a large low density septated nodule within the left thyroid lobe. The right thyroid lobe is unremarkable. Bones: No suspicious bony lesions. Visualized cervical spine appears normally aligned. IMPRESSION: 1. New subacute infarct within the left frontal lobe likely within the watershed distribution between the left anterior and middle cerebral arteries. No findings suggest hemorrhagic transformation. This finding was discussed with Dr. Navas at 9:30 AM on 10/27/16. 2. Old right occipital lobe infarct and findings likely associated with chronic microvascular ischemic changes. 3. Multifocal high-grade stenoses within the cavernous portions of the bilateral internal carotid arteries secondary to extensive atheromatous calcifications. 4. Moderate grade stenosis within the M2 segment of the right middle cerebral artery. 5. Basilar artery formed exclusively from a normal appearing left vertebral artery. 6. Focal, high-grade stenosis at the origin of the left vertebral artery. 7. Centrilobular emphysema bilateral low density pleural effusions which are incompletely characterized on this limited view of the chest. 8. Large septated low density nodule within the left thyroid lobe. Nonemergent thyroid ultrasound would be helpful to further characterize this finding. Dictated by: Daysi Worthington M.D. on 10/27/2016 at 8:56 Approved by: Daysi Worthington M.D. on 10/27/2016 at 9:46 ECG 12 Lead Atrial fibrillation with rate in the 80s Cardiac Echo Impression Echocardiogram Report Name: ERNESTO WHITEHEAD PStudy Date: 05/2016 Height: 60 in Hospital Exam Location: [facility] Weight: 166 lb Gender: Female BSA: 1.7 m2 : 1930 Age: 86 yrs BP: 156/62 mmHg Reason For Study: CVA Ordering Physician: Performed By: Kaley Ramirez Interpretation Summary The patient was in atrial fibrillation with controlled ventricular rate during the exam. The left ventricle is normal in size. The ejection fraction is estimated to be 50-55%. Ther appears to be moderate to severe hypokinesis of base to mid inferior wall and base to mid inferoseptum. The right ventricle is mildly dilated. Right ventricular systolic function is mildly reduced. The left atrium is severely dilated. Injection of contrast documented no interatrial shunt. There is moderate tricuspid regurgitation. The right ventricular systolic pressure is estimated at 51 mmHg assuming a right atrial pressure of 3 mm Hg. There is moderate to severe mitral regurgitation Brief History 86-year-old female with a history of hypertension, hyperlipidemia, reported CT, CHF, atrial fibrillation on no reported anticoagulation, and history of TIA and stroke 20 years ago presented to the emergency department via EMS due to dysarthria with last known normal around 1700 today. The patient is unable to relate details due to pain non-communicable, which is obviously frustrating to her. The daughter reports that the patient talked to the neighbors until approximate 1700 when she went home. The daughter called about 1900 and was unable to understand the patient had all. EMS was called and the patient was delivered to the emergency department. Per the EMS reports patient is in stable condition and known focal deficits were noted aside from the dysarthria. Patient's daughter denies any recent illnesses, trauma, seizures, or complaints of nausea/vomiting, abdomen, or chest pain. Patient denies racing heartbeat. Previous stroke was only evident in loss of visual capellan with no lasting deficits. In the emergency department the patient's dysarthria was described as severe no ability to verbally communicate. Patient was assessed for TPA, and a call was placed to [facility] neurology, with the decision being to withhold treatment due to age, blood pressure greater than 200, and a 1/8 chance of improving symptoms versus a 7% chance of hemorrhage. Patient was given 5 of labetalol in anticipation of TPA. Patient was then given a liter of normal saline, aspirin, and Plavix. Hospital Course 86-year-old female with a history of hypertension, hyperlipidemia, reported CT, CHF, atrial fibrillation on no reported anticoagulation, and history of TIA and stroke 20 years ago presented to the emergency department via EMS due to dysarthria with last known normal around 1700 today Acute Stroke; present admission; ongoing -Presents with aphasia/dysarthria; TPA. 2 higher risk for 2 little benefit -CT brain was negative for bleed - CT angio brain and neck reveals left frontal stroke most likely not watershed distribution of the anterior and middle cerebral arteries. Radiology suggested that there would be no additional information from obtaining MRI/MRA and hence this was canceled. -Increased Atorvastatin to 80 mg by mouth daily -Aspirin 81 mg daily and Plavix 75mg daily -Lipid panel and A1c -Permissive hypertension; control>220 with labetalol -Swallow screen which was passed without problems -OT/PT ordered for which he had no continuing needs. Also speech therapy consultation for expressive aphasia was done and will continue with home health RN and speech therapy -Most likely will also need anticoagulant therapy within the next 2 weeks given her A. fib and acute CVA. We will not give currently is there is increased risk of hemorrhagic transformation. Left thyroid complex nodule seen on CAT scan -We will need nonemergent follow-up of this as an outpatient Atrial fibrillaiton reportedly not on anticoagulation; present on admission; stable -Reportedly on metoprolol and rate controlled on admit Hx of CT and TIA -Daily Aspirin -Was previously on plavix but unable to establish timeline for when this was stopped Hypertension -permissive hypertension -only reported medication is metoprolol Type II diabetes; present on admission; ongoing -Last A1c was is unavailable; A1c ordered -Home medication: None -Blood glucose should be closely monitored not to exceed 180; if greater than 180 please contact M.D. Hyperlipidemia -statin as above Disposition: To home and actually will be staying with daughter in [facility] over the next few weeks and will get home health care RN and speech therapy Full code Exam Vital Signs (Last) Date Time Temp Pulse Resp B/P Pulse Ox O2 Delivery O2 Flow Rate FiO2 10/28/16 08:32 Supplement Oxygen 10/28/16 08:01 36.4 72 18 143/63 94 10/27/16 04:18 1.00 Exam Constitutional: Elderly female in no acute distress Head: Normocephalic and traumatic Chest: Clear to auscultation Cor: Irregular regular rate and rhythm S1-S2 Abdomen: soft, nontender bowel sounds present Extremities: No pedal edema Psych: Mood and affect are appropriate Skin: No rashes Neuro: Alert and oriented 3, motor strength is intact bilaterally, does have intermittent expressive aphasia but when she speaks slower and takes time she has less problems with speech. Laboratory Tests 72 Hours Test 10/26/16 20:19 10/26/16 20:21 10/26/16 21:25 10/27/16 05:50 White Blood Count 8.7th/mm3 (3.8-10.1) 9.1th/mm3 (3.8-10.1) Red Blood Count 4.15mil/mm3 (3.90-5.20) 3.95mil/mm3 (3.90-5.20) Hemoglobin 12.8g/dL (12.0-15.6) 12.2g/dL (12.0-15.6) Hematocrit 38.6% (35.0-46.0) 37.0% (35.0-46.0) Mean Corpuscular Volume 93.0fL (81-100) 93.7fL (81-100) Mean Corpuscular Hemoglobin 30.8pg (27.0-35.0) 30.9pg (27.0-35.0) Mean Corpuscular Hemoglobin Concent 33.2% (32.0-37.0) 33.0% (32.0-37.0) Red Cell Distribution Width 16.8% (12.3-15.4) 16.7% (12.3-15.4) Platelet Count 283bil/L (150-400) 272bil/L (150-400) Neutrophils (%) (Auto) 54.3% (40-74) 61.2% (40-74) Lymphocytes (%) (Auto) 23.2% (14-46) 18.3% (14-46) Monocytes (%) (Auto) 19.2% (4-12) 18.2% (4-12) Eosinophils (%) (Auto) 2.2% (0-5) 1.2% (0-5) Basophils (%) (Auto) 0.8% (0-3) 0.8% (0-3) Prothrombin Time 10.6sec (8.1-12.5) Prothromb Time International Ratio 0.99ratio Activated Partial Thromboplast Time 28.2sec (22.8-33.0) Sodium Level 132mEq/L (134-144) 137mEq/L (134-144) Potassium Level 4.1mEq/L (3.5-5.2) 4.4mEq/L (3.5-5.2) Chloride Level 92mEq/L (97-108) 99mEq/L (97-108) Carbon Dioxide Level 22mmol/L (18-29) 23mmol/L (18-29) Blood Urea Nitrogen 16mg/dL (8-27) 14mg/dL (8-27) Creatinine 0.85mg/dL (0.57-1.00) 0.64mg/dL (0.57-1.00) Estimat Glomerular Filtration Rate 91mL/min (>59) 126mL/min (>59) Glucose Level 121mg/dL (60-99) 116mg/dL (60-99) Hemoglobin A1c 5.8% (4.8-5.6) Calcium Level 9.6mg/dL (8.5-10.1) 9.3mg/dL (8.5-10.1) Total Bilirubin 0.6mg/dL (0.0-1.2) 0.7mg/dL (0.0-1.2) Aspartate Amino Transf (AST/SGOT) 30U/L (0-50) 23U/L (0-50) Alanine Aminotransferase (ALT/SGPT) 23U/L (0-32) 18U/L (0-32) Alkaline Phosphatase 94U/L (25-165) 87U/L (25-165) Troponin T < 0.010ug/L (0.0-0.011) Total Protein 7.0g/dL (6.4-8.4) 6.3g/dL (6.4-8.4) Albumin 4.1g/dL (3.4-5.0) 4.1g/dL (3.4-5.0) Hold Ambriz Top Tube Received (Received) Urine Color Yellow (YELLOW) Urine Appearance Clear (CLEAR,HAZY) Urine pH 5.0 (5.0-8.0) Urine Specific [place] 1.020 (1.003-1.035) Urine Protein Negativemg/dL (NEG,TRACE) Urine Glucose (UA) Negativemg/dL (NEGATIVE) Urine Ketones Negativemg/dL (NEGATIVE) Urine Occult Blood Negative (NEGATIVE) Urine Nitrite Negative (NEGATIVE) Urine Bilirubin Negative (NEGATIVE) Urine Urobilinogen Normalmg/dL (NORMAL) Urine Leukocyte Esterase Small (NEGATIVE) Urine RBC 0-2/hpf (0-2) Urine WBC 6-10/hpf (0-5) Urine Epithelial Cells Few/hpf (NONE-MOD) Urine Crystals None seen (NONE SEEN) Urine Bacteria Few/hpf (NONE-FEW) Urine Hyaline Casts 5/20/lpf (NONE) Urine Granular Casts None seen (NONE SEEN) Urine Waxy Casts None seen (NONE SEEN) Urine Red Blood Cell Casts None seen (NONE SEEN) Urine White Blood Cell Casts None seen (NONE SEEN) Urine Mucus None seen (None Seen) Urine Trichomonas None seen (NONE SEEN) Urine Yeast None (NONE SEEN) Urinalysis Comment None Urine Culture Reflexed Indicated Triglycerides Level 81mg/dL (0-149) Cholesterol Level 173mg/dL (100-199) LDL Cholesterol, Calculated 71.800mg/dL (0-99) VLDL Cholesterol 16.200mg/dL HDL Cholesterol 85mg/dL (>39) Cholesterol/HDL Ratio 2.04 (0.0-4.4) Thyroid Stimulating Hormone (TSH) 2.030uIU/mL (0.450-4.500) Free Thyroxine 1.58ng/dL (0.82-1.77) Test 10/26/16 20:19 10/26/16 20:21 10/26/16 21:25 10/27/16 05:50 Prothrombin Time 10.6sec (8.1-12.5) Prothromb Time International Ratio 0.99ratio Activated Partial Thromboplast Time 28.2sec (22.8-33.0) Hemoglobin A1c 5.8% (4.8-5.6) Troponin T < 0.010ug/L (0.0-0.011) Hold Ambriz Top Tube Received (Received) Urine Color Yellow (YELLOW) Urine Appearance Clear (CLEAR,HAZY) Urine pH 5.0 (5.0-8.0) Urine Specific [place] 1.020 (1.003-1.035) Urine Protein Negativemg/dL (NEG,TRACE) Urine Glucose (UA) Negativemg/dL (NEGATIVE) Urine Ketones Negativemg/dL (NEGATIVE) Urine Occult Blood Negative (NEGATIVE) Urine Nitrite Negative (NEGATIVE) Urine Bilirubin Negative (NEGATIVE) Urine Urobilinogen Normalmg/dL (NORMAL) Urine Leukocyte Esterase Small (NEGATIVE) Urine RBC 0-2/hpf (0-2) Urine WBC 6-10/hpf (0-5) Urine Epithelial Cells Few/hpf (NONE-MOD) Urine Crystals None seen (NONE SEEN) Urine Bacteria Few/hpf (NONE-FEW) Urine Hyaline Casts 08/13/lpf (NONE) Urine Granular Casts None seen (NONE SEEN) Urine Waxy Casts None seen (NONE SEEN) Urine Red Blood Cell Casts None seen (NONE SEEN) Urine White Blood Cell Casts None seen (NONE SEEN) Urine Mucus None seen (None Seen) Urine Trichomonas None seen (NONE SEEN) Urine Yeast None (NONE SEEN) Urinalysis Comment None Urine Culture Reflexed Indicated White Blood Count 9.1th/mm3 (3.8-10.1) Red Blood Count 3.95mil/mm3 (3.90-5.20) Hemoglobin 12.2g/dL (12.0-15.6) Hematocrit 37.0% (35.0-46.0) Mean Corpuscular Volume 93.7fL (81-100) Mean Corpuscular Hemoglobin 30.9pg (27.0-35.0) Mean Corpuscular Hemoglobin Concent 33.0% (32.0-37.0) Red Cell Distribution Width 16.7% (12.3-15.4) Platelet Count 272bil/L (150-400) Neutrophils (%) (Auto) 61.2% (40-74) Lymphocytes (%) (Auto) 18.3% (14-46) Monocytes (%) (Auto) 18.2% (4-12) Eosinophils (%) (Auto) 1.2% (0-5) Basophils (%) (Auto) 0.8% (0-3) Sodium Level 137mEq/L (134-144) Potassium Level 4.4mEq/L (3.5-5.2) Chloride Level 99mEq/L (97-108) Carbon Dioxide Level 23mmol/L (18-29) Blood Urea Nitrogen 14mg/dL (8-27) Creatinine 0.64mg/dL (0.57-1.00) Estimat Glomerular Filtration Rate 126mL/min (>59) Glucose Level 116mg/dL (60-99) Calcium Level 9.3mg/dL (8.5-10.1) Total Bilirubin 0.7mg/dL (0.0-1.2) Aspartate Amino Transf (AST/SGOT) 23U/L (0-50) Alanine Aminotransferase (ALT/SGPT) 18U/L (0-32) Alkaline Phosphatase 87U/L (25-165) Total Protein 6.3g/dL (6.4-8.4) Albumin 4.1g/dL (3.4-5.0) Triglycerides Level 81mg/dL (0-149) Cholesterol Level 173mg/dL (100-199) LDL Cholesterol, Calculated 71.800mg/dL (0-99) VLDL Cholesterol 16.200mg/dL HDL Cholesterol 85mg/dL (>39) Cholesterol/HDL Ratio 2.04 (0.0-4.4) Thyroid Stimulating Hormone (TSH) 2.030uIU/mL (0.450-4.500) Free Thyroxine 1.58ng/dL (0.82-1.77) Discharge Medications Discharge Medications ([cholecalciferol]) 1 TABLET PO DAILY (Reported) Aspirin (Aspirin) 81 Mg Tablet 81 MG PO DAILY (Reported) Atorvastatin Calcium (Atorvastatin Calcium) 40 Mg Tablet 40 MG PO HS (Reported) Clopidogrel (Clopidogrel) 75 Mg Tablet 75 MG PO DAILY Prescribed by: LYNDSEY LUGO MD Furosemide (Furosemide) 20 Mg Tab 20 MG PO DAILY (Reported) Lactobacillus Combo No.11 (Probiotic) 1 Each Cap.sprink 1 EACH PO DAILY ( Reported) Losartan Potassium (Losartan Potassium) 100 Mg Tablet 100 MG PO DAILY (Reported ) Magnesium Oxide (Magnesium) 400 Mg Capsule 400 MG PO DAILY (Reported) Melatonin (Melatonin) 3 Mg Tab.rapdis 3 MG PO HS (Reported) Metoprolol Tartrate (Metoprolol Tartrate) 50 Mg Tablet 50 MG PO DAILY (Reported ) Multivit-Min/Iron Fum/Folic AC (Wyijt-Vezcxat-Jbvhivdv Tablet) 7.5 Mg Iron-400 Mcg Tablet 1 EACH PO DAILY (Reported) Omeprazole (Omeprazole) 20 Mg Capsule.dr 20 MG PO DAILY (Reported) Pnv Cmb#21/Iron/Folic Acid ( Complete Caplet) 1 Each Tablet 1 EACH PO DAILY (Reported) Potassium Chloride ER (Potassium Chloride ER) 10 Meq Tablet 10 MEQ PO DAILY ( Reported) TAKE WITH FOOD As needed Acetaminophen/Codeine 300-30mg (Acetaminophen/Codeine 300-30mg) 1 Each Tablet 1 TABLET PO Q4H PRN PRN Pain (Reported) Gabapentin (Gabapentin) 300 Mg Capsule 300 MG PO DAILY PRN PRN Neuropathy ( Reported) Miscellaneous Medications Acetaminophen/Diphenhydramine (Tylenol Pm Ex-Strength Caplet) 500 Mg-25 Mg Tablet 1 EACH PO (Reported) Followup Plan Disposition: Home with daughter and home health care consult for RN and speech therapy Discharge Diet: Heart Healthy Discharge Activity: Other (as tolerated) Follow-up Provider: Saad Rinaldi MD Follow-up with PCP in: Other (5-7 days,sooner if problems) Time spent Greater than 30 minutes was spent in preparation of discharge with greater than 50% of that time dedicated to patient counseling and coordination of care. copies to: Saad Rinaldi MD, Cheryl A MD Oct 28, 2016 14:40
--- NOTE | 2016-10-28 16:54 | NUR ---
Social Work: Discharge / Late Entry Data: Pt is on day 2 of hospitalization. EMR reviewed, pt discussed in multidisciplinary rounds. MD states pt ready for d/c today. ordered [employer] to set up HH for ST and RN. [employer] met with pt at bedside, explained HH and options. Pt chose to go with [facility] as she has had them in the past. [employer] referred pt to [facility], faxed paperwork, and received confirmation that they can open with pt. No further d/c planning needs at this time. [employer] will continue to follow if needs arise. Assessment: Pt who is independent at baseline, currently capable of self care. Plan: Pt discharged home this afternoon via POV with her daughter with [facility] for ST and RN to follow. No further d/c planning needs at this time. [employer] will continue to follow if needs arise. PAULA Ayala
== END 2016-10-28 14:43 | disposition home health service (06) | DRG 65 ==
LOC: SED 19:58 → MPC 21:36
PROVIDERS: ADMIT Internal Medicine; ATTEND Specialist
DX: I63.9 Cerebral infarction, unspecified (principal); I50.32 Chronic diastolic (congestive) heart failure; R47.1 Dysarthria and anarthria; I10 Essential (primary) hypertension; E78.5 Hyperlipidemia, unspecified; R40.2362 Coma scale, best motor response, obeys commands, at arrival to emergency department; R40.2232 Coma scale, best verbal response, inappropriate words, at arrival to emergency department; R40.2142 Coma scale, eyes open, spontaneous, at arrival to emergency department; E04.1 Nontoxic single thyroid nodule; I25.2 Old myocardial infarction; Z79.82 Long term (current) use of aspirin; I34.0 Nonrheumatic mitral (valve) insufficiency